=== PATIENT | male | born 1935 | race Caucasian/White ===

== ENCOUNTER → 2017-09-08 | Outpatient (CLI) | payer OTHER ==
[~2017-09-08] MED LIST: CRSUNK PO; HYDC25 PO; ISOS30TA3 PO; LISI-461 PO; METO25TA3 PO; MULT-506 PO; NTRGSL/4 UT; eliquis
[2017-09-08 13:02] VITALS: BP 121/78; PULSE 76; TEMP 36.5; O2SAT 98
--- NOTE | 2017-09-08 17:39 | Radiation Oncology Follow-Up ---
Radiation Oncology Follow-Up Date of Visit Sep 08, 2017. 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 He gave an AUA score of 8. This is stable compared to last year with a score of 7. He does not require any medication to help with urination. He completed and expanded prostate cancer index composite for clinical practice and gave a score of 0 of 12 and urinary incontinence symptoms. He gave a score of 0 of 12 urinary irritation symptoms. He gave a score of 0 of 12 in bowel symptoms. He gave a score of 6 of 12 and sexual symptoms. He gave a score of 0 12 hormonal vitality symptoms. His total was 6 of 60. He had a PSA 08/11/2017 that was 0.07. His PSA 08/11/2016 was 0.04. Allergies Coded Allergies: No Known Allergies (Verified Allergy, Unknown, 11/27/05) Home Medications Scheduled Hydrochlorothiazide (Hctz *), 25 MG PO DAILY Isosorbide Mononitrate Ext Rel (Imdur Ext Rel), 30 MG PO QPM Lisinopril (Zestril), 10 MG PO DAILY Metoprolol Succ (Toprol Xl) (Toprol-Xl), 25 MG PO QPM Multivitamin (Multivitamin), 1 TAB PO DAILY Nitroglycerin (Nitrostat), 0.4 MG UT PRN Rosuvastatin Calcium (Crestor Unknown Dose), 5 MG PO DAILY [eliquis], 1 TAB BID Review of Systems Gastrointestinal: Symptoms: WNL Oral: Symptoms: No Problems Respiratory: Symptoms: WNL Respiratory Comments: OLMOS, Moist Productive Cough of thick yellow sputum Urinary: Symptoms: Nocturia Comments: nocturiax2 Skin: Symptoms: No Problems Physical Exam Vital Signs Date Time Temp Pulse Resp B/P (MAP) Pulse Ox O2 Delivery O2 Flow Rate FiO2 09/08/17 13:02 36.5 76 24 121/78 98 Fatigue: None General Appearance: no apparent distress Eyes: normal inspection, EOMI ENT: normal ENT inspection, hearing grossly normal Neck: no adenopathy, thyroid normal Respiratory/Chest: lungs clear, no respiratory distress, no accessory muscle use Cardiovascular: regular rate, rhythm, no gallop, no murmur Abdomen: non tender, soft, no organomegaly Anal / Rectum: Normal sphincter tone. No rectal masses and no rectal bleeding. Prostate is flat without induration. Extremities: no pedal edema Neurologic/Psychiatric: no motor/sensory deficits, alert, normal mood/affect Skin: warm/dry Pain Management Patient Reports Pain: No Pain Management Plan He denies pain therefore requires no pain management. Laboratory Laboratory Results: were reviewed Laboratory Comments: Reviewed in the interim history. Pathology Pathology Results: not applicable Imaging Imaging Studies: not applicable Assessment & Plan Plan: Continue annual PSAs. An order was given for him to obtain a PSA at [facility] prior to his visit next year. We did discuss possibly following now just with his primary care physician. He did wish to return to our office. A follow-up appointment was given for 1 year. He may call if he has any questions or concerns in the interim. Total Time In Follow-Up I spent 20 minutes speaking to the patient and performing examination. I spent 15 minutes reviewing information in completing this note. Copy To Nura Pham M.D.
== END | disposition home or self-care (01) ==
LOC: C.ONC 12:43
PROVIDERS: ATTEND Physician Assistant Medical
DX: Z08 Encounter for follow-up examination after completed treatment for malignant neoplasm (principal); Z92.3 Personal history of irradiation; Z85.46 Personal history of malignant neoplasm of prostate